=== PATIENT | female | born 1960 | race Caucasian/White ===

== ENCOUNTER → 2018-11-26 18:39 | Outpatient (CLI) | payer MEDICAID, SELFPAY | PROVIDERS: Visit Provider Emergency Medicine | DX: R10.9 Unspecified abdominal pain (principal) | CPT/HCPCS: 87086 ==

== ENCOUNTER 2019-03-26 11:39 | Observation (INO) ==
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
[2019-03-26 12:06] LABS: Microscopic, Urine URINE MICROSCOPIC (MICROSCOPIC)
[2019-03-26 12:11] LABS: Appearance,Urine CLEAR (Clear); Bilirubin,Urine Negative (Negative); Blood, Urine Negative (Negative); Color,Urine YELLOW (Yellow); Glucose,Urine (UA) Negative (Negative); Ketones,Urine Negative (Negative); Leukocyte Esterase,Urine Negative (Negative); PH,Urine 8.5 (5.0-8.5); Protein,Urine Negative (Negative)
[2019-03-26 12:17] LABS: Amphetamine/Metha Screen,Urine Negative ng/mL (<1000); Barbiturates Screen,Urine Negative ng/mL (<200); Benzodiazepines Screen,Urine Negative ng/mL (<200); Cannabinoid Screen,Urine Negative ng/mL (<50); Cocaine Screen,Urine Negative ng/mL (<300); Methadone Screen,Urine Negative ng/mL (<300); Opiate Screen,Urine Negative ng/mL (<300); Phencyclidine Screen,Urine Negative ng/mL (<25)
[2019-03-26 12:29] LABS: Basophils % 0.4 % (0.1-2.0); Eosinophils # 0.1 K/mm3 (0.0-0.4); Eosinophils % 1.1 % (0.1-12.0); Hematocrit 54.2 % (37.0-47.0); Hemoglobin 17.1 g/dL (12.2-16.2); Lymphocytes # 1.7 K/mm3 (0.7-4.5); Lymphocytes % 24.2 % (10-50); Mean Corpuscular HGB Conc 31.5 g/dL (31.8-35.4); Mean Corpuscular Volume 88.5 fl (81-99); Mean Platelet Volume 7.6 fl (7.4-10.4); Monocytes # 0.5 K/mm3 (0.1-1.0); Monocytes % 6.8 % (1.7-9.3); Neutrophils # 4.8 K/mm3 (1.8-7.8); Neutrophils % 67.4 % (37.0-80.0); Platelet Count 179 K/mm3 (142-424); Red Blood Count 6.12 M/mm3 (4.20-5.40); Red Cell Distribution Width 14.8 % (11.5-17.5); White Blood Count 7.1 K/mm3 (4.8-10.8)
[2019-03-26 12:29] LABS: Bacteria,Urine Trace /lpf; Squamous Epithelial Cell,Urine Occasional #/hpf (0-5); WBC,Urine Occasional #/hpf (0-3)
[2019-03-26 12:45] LABS: Alanine Aminotransferase 18 U/L (12-78); Albumin Level 3.5 gm/dL (3.4-5.0); Albumin/Globulin Ratio 0.9 (1.1-1.8); Alkaline Phosphatase 92 U/L (46-116); Anion Gap 13.9 mEq/L (5-15); Aspartate Amino Transferase 9 U/L (15-37); Bilirubin,Total 0.7 mg/dL (0.2-1.0); Blood Urea Nitrogen 11 mg/dL (7-18); Calcium 9.1 mg/dL (8.5-10.1); Carbon Dioxide 29 mmol/L (21.0-32.0); Chloride 103 mmol/L (98-107); Globulin 4.1 gm/dl (1.3-3.2); Glucose 122 mg/dL (74-106); Sodium 142 mmol/L (136-145); Total Protein,Serum 7.6 gm/dL (6.4-8.2)
--- NOTE | 2019-03-26 15:44 | History & Physical Report ---
*Admission Date: 03/26/19 *Chief complaint: Headache/chest pain/shortness of air *History of present illness: 58-year-old white female with multiple medical problems, including chronic pain disorder-managed by pain management/physical medicine and rehabilitation at [facility] and on a host of opiate pain medications-who also suffers from coronary disease, status post stent placement in 2013 with no cardiology follow-up in the past 2 years, as well as hypertension and fibromyalgia issues who has not seen her primary physician for over 4 months. She ran out of her blood pressure medication 2 days ago. Last night she began to have increasing headaches and shortness of air, felt like her head had a frontal headache that was extremely uncomfortable and pounding and felt a chest fullness. She came to the emergency department this morning, labs were nondiagnostic but because of her elevated blood pressure and risk factors she was admitted to observation for further diagnostic testing and serial enzymes. [facility] History I have reviewed the patient's past medical history: Yes Medical History: Reports:: Congestive Heart Failure, Hyperlipidemia, Hypertension, Myocardial Infarction, Palpitations Denies:: Cancer, Diabetes Mellitus Type 1, Diabetes Mellitus Type 2, MRSA *Have you ever received a pneumonia vaccine?: No *Have you received a flu vaccine this season?: No Other Medical History: Reports: Hypothyroidism, Sinus Problems, Thyroid Disease Laterality Cases: Bilateral: Myringotomy (Ear Tubes), Tonsillectomy Other Surgeries: Yes: Cardiac Catheterization, Cholecystectomy Amputation: No Fractures: No - *Social History Educational Level: Attended College Smoking Status: Current every day smoker Tobacco Type: cigarettes # Packs/Day (cigarettes): 2 Alcohol Intake: former Alcohol Intake Frequency:: other Substance Use Type: crack/cocaine, prescription drug *Occupational Status:: disabled Housing: house Household Members: none *Travel in the last 8 weeks: None Family Hx:: Cancer, Coronary Artery Disease, Diabetes, Heart Attack, Hyperlipidemia, Hypertension, Stroke, Thyroid Disorder Review of Systems - Review of Systems Patient has significant headache problems, reports that she has no double vision or blurry vision. Reports chest pain but no diaphoresis, reports nausea. Reports chronic pains almost all over her body. This is an old finding for her. Reports no neurologic deficits of focal areas. Otherwise review of systems unremarkable except as noted in HPI. Meds Home Medications Medication Instructions Recorded Confirmed Type nitroglycerin 0.4 mg sublingual 0.4 mg SUBLINGUAL Q5-15M PRN #25 05/12/1803/14 Rx tablet tab fentanyl 100 mcg/hr transdermal 1 patch TRANSDERMA Q72H 11/26/18 03/26/19 History patch gabapentin 800 mg tablet 800 mg PO QID tab 11/26/18 03/26/19 History tramadol 50 mg tablet 100 mg PO Q6H PRN tab 11/26/18 03/26/19 History Amlodipine Besylate [Amlodipine 10 mg PO DAILY 03/26/19 03/26/19 History 10mg Tab] Aspirin [Low Dose Aspirin EC] 81 mg PO DAILY 03/26/19 03/26/19 History Atorvastatin Calcium [Lipitor 80mg 80 mg PO HS 03/26/19 03/26/19 History Tablet] Carvedilol [Carvedilol 25mg Tab] 25 mg .ROUTE BID 03/26/19 03/26/19 History Clopidogrel Bisulfate [Plavix 75mg 75 mg PO DAILY 03/26/19 03/26/19 History Tab] Furosemide [Furosemide 40MG tAB] 40 mg PO DAILY 03/26/19 03/26/19 History Isosorbide Mononitrate [Imdur 60mg 60 mg PO DAILY 03/26/19 03/26/19 History ER tablet] Levothyroxine Sodium 125 mcg PO DAILY 03/26/19 03/26/19 History [Levothyroxine 125mcg (0.125mg) Tab] Loratadine [Allergy Relief] 10 mg PO DAILY 03/26/19 03/26/19 History Omeprazole [Omeprazole 20mg 20 mg PO DAILY 03/26/19 03/26/19 History Capsule] Oxycodone HCl [Oxycodone (IR) 10mg 1 - 2 tab PO Q6HP PRN 03/26/19 03/26/19 History Tab] Tizanidine HCl 4 mg PO TID 03/26/19 03/26/19 History Trazodone HCl 100 mg PO HS 03/26/19 03/26/19 History Allergies Allergy/AdvReac Type Severity Reaction Status Date / Time lisinopril [LISINOPRIL] Allergy Severe S-ANAPHYLAX Verified 03/26/19 12:23 IS erythromycin base AdvReac Verified 03/26/19 11:50 Exam Vital signs and Labs for Last 24 Hours: Temp Pulse Resp BP Pulse Ox 98.1 F 62 16 151/83 H 96 03/26/19 14:27 03/26/19 14:27 03/26/19 14:27 03/26/19 14:27 03/26/19 14:27 Laboratory Results - last 24 hr 03/26/19 11:51: Urine Opiates Screen Negative, Urine Methadone Screen Negative, Ur Barbituates Screen Negative, Ur Phencyclidine Scrn Negative, Ur Amphetamines Screen Negative, U Benzodiazepines Scrn Negative, Urine Cocaine Screen Negative, U Marijuana (THC) Screen Negative 03/26/19 12:00: Urine Color Yellow, Urine Appearance Clear, Urine pH 8.5, Ur Specific [place] 1.010, Urine Protein Negative, Urine Glucose (UA) Negative, Urine Ketones Negative, Urine Blood Negative, Urine Nitrate Negative, Urine Bilirubin Negative, Urine Urobilinogen 1.0, Ur Leukocyte Esterase Negative, Urine WBC Occasional, Ur Squamous Epith Cells Occasional, Urine Bacteria Trace 03/26/19 12:04: WBC 7.1, RBC 6.12 H, Hgb 17.1 H, Hct 54.2 H, MCV 88.5, MCH 27.9, MCHC 31.5 L, RDW 14.8, Plt Count 179, MPV 7.6, Neut % (Auto) 67.4, Lymph % (Auto) 24.2, [place] % (Auto) 6.8, Eos % (Auto) 1.1, Baso % (Auto) 0.4, Neut # (Auto) 4.8, Lymph # (Auto) 1.7, [place] # (Auto) 0.5, Eos # (Auto) 0.1, Baso # (Aut o) 0.0 03/26/19 12:04: D-Dimer < 100 03/26/19 12:04: Sodium 142, Potassium 3.9, Chloride 103, Carbon Dioxide 29, Anion Gap 13.9, BUN 11, Creatinine 0.61, Estimated Creat Clear 168, Estimated GFR 101, Est GFR ( Amer) 122, Glucose 122 H, Calcium 9.1, Total Bilirubin 0.7, AST 9 L, ALT 18, Alkaline Phosphatase 92, Troponin I < 0.02, Total Protein 7.6, Albumin 3.5, Globulin 4.1 H, Albumin/Globulin Ratio 0.9 L 03/26/19 12:04: B-Natriuretic Peptide 172 H I & O for Last 24 hours: Intake & Output 03/24/19 03/25/19 03/26/19 03/27/19 11:59 11:59 11:59 11:59 Weight 230 lb 272 lb 2 oz Narrative: Patient is alert, oriented x3. Morbid obesity noted, limits accuracy of exam. Lungs are clear in the anterior and posterior jimenez, heart rate regular without murmurs. Abdomen is soft, very limited exam. Distal extremities warm and well-perfused, normal pulses. Cranial nerves intact, peripheral strength and reflexes are also intact. Assessment and Plan (1) Personal history of nicotine dependence Current visit: Yes Status: Acute Category: Medical Code(s): Z87.891 - Personal history of nicotine dependence Nicotine patch ordered (2) Accelerated hypertension Current visit: Yes Status: Acute Category: Medical Code(s): I10 - Essential (primary) hypertension Restart home medication. I think this will solve most of her headache and chest pain problems. (3) CAD (coronary artery disease) Current visit: Yes Status: Acute Category: Medical Code(s): I25.10 - Atherosclerotic heart disease of [place] coronary artery without angina pectoris On good medications with beta-jeri, aspirin and Plavix. On high-dose statin. Not on KORY inhibitor because of allergy. We will schedule cardiology follow- up on discharge. (4) Headache Current visit: Yes Status: Acute Category: Medical Code(s): R51 - Headache Lowering blood pressure will help. (5) Non-compliance Current visit: Yes Status: Acute Category: Medical Code(s): Z91.19 - Patient's noncompliance with other medical treatment and regimen (6) Obesity Current visit: Yes Status: Acute Qualifiers: Obesity classification: adult class 3 (BMI >= 40) Body mass index: BMI 40.0-44.9 Category: Medical Code(s): E66.9 - Obesity, unspecified Complicates all aspects of her care
[2019-03-27 07:47] LABS: Basophils % 0.2 % (0.1-2.0); Eosinophils # 0.1 K/mm3 (0.0-0.4); Eosinophils % 1.1 % (0.1-12.0); Hematocrit 50.6 % (37.0-47.0); Hemoglobin 15.5 g/dL (12.2-16.2); Lymphocytes # 2.2 K/mm3 (0.7-4.5); Lymphocytes % 29.3 % (10-50); Mean Corpuscular HGB Conc 30.6 g/dL (31.8-35.4); Mean Platelet Volume 8.1 fl (7.4-10.4); Monocytes # 0.5 K/mm3 (0.1-1.0); Monocytes % 7.2 % (1.7-9.3); Neutrophils # 4.7 K/mm3 (1.8-7.8); Neutrophils % 62.2 % (37.0-80.0); Platelet Count 156 K/mm3 (142-424); Red Blood Count 5.56 M/mm3 (4.20-5.40); Red Cell Distribution Width 14.9 % (11.5-17.5); White Blood Count 7.5 K/mm3 (4.8-10.8)
[2019-03-27 07:59] LABS: Calcium 8.9 mg/dL (8.5-10.1)
--- NOTE | 2019-03-27 08:24 | Discharge Summary ---
General - General Admission date:: 03/26/19 Discharge date: 03/27/19 HPI HPI: 58-year-old white female with multiple medical problems, including chronic pain disorder-managed by pain management/physical medicine and rehabilitation at [facility] and on a host of opiate pain medications-who also suffers from coronary disease, status post stent placement in 2013 with no cardiology follow-up in the past 2 years, as well as hypertension and fibromyalgia issues who has not seen her primary physician for over 4 months. She ran out of her blood pressure medication 2 days ago. Last night she began to have increasing headaches and shortness of air, felt like her head had a frontal headache that was extremely uncomfortable and pounding and felt a chest fullness. She came to the emergency department this morning, labs were nondiagnostic but because of her elevated blood pressure and risk factors she was admitted to observation for further diagnostic testing and serial enzymes. Hospital Course Hospital Course: Patient was admitted to the hospital and her regular medications were restarted. She told me this morning that she has not run out of most of her blood pressure medication but just simply stopped them because "sometimes I get tired of taking medicines." Interestingly she maintains that she has been compliant with her fentanyl and oxycodone therapy and tramadol therapy even though her opiate screen was negative on urine testing on admission. She does not know why this would be the case. Hospital course was smooth. She was admitted, telemetry monitoring showed normal sinus rhythm. She had 3 sets of negative troponins and her blood pressure responded very nicely to the resumption of her normal medication regimen. She had a headache that resolved after nitroglycerin patch was removed. She tolerated a NicoDerm patch fairly well. This morning other than feeling "tired and not great," she had no complaints. She was alert and oriented. Please see discharge physical exam. She will be discharged home to resume her regular medications. I will prescribe a NicoDerm patch for her. She will follow-up with her pain management physician at -they will need to address the absence of controlled substances in her urine specimen in the face of multiple opiate prescriptions. I have advised her that she needs to resume regular follow-up with cardiology and her primary care office. Objective Vital signs: Temp Pulse Resp BP Pulse Ox 98.8 F 57 L 17 124/47 L 97 03/27/19 08:00 03/27/19 08:00 03/27/19 08:00 03/27/19 08:00 03/27/19 08:00 Narrative: Patient is awake, oriented x3. Dysthymic affect. Heart rate regular. No murmurs. Good distal tissue perfusion. Lungs are clear bilaterally. Abdomen is obese but soft. No JVD. Oropharynx clear. Cranial nerves intact. Results Labs on day of discharge: Labs from last 24 hours 03/27/19 03/27/19 03/26/19 07:05 07:05 20:06 WBC 7.5 RBC 5.56 H Hgb 15.5 Hct 50.6 H MCV 91.0 MCH 27.9 MCHC 30.6 L RDW 14.9 Plt Count 156 MPV 8.1 Neut % (Auto) 62.2 Lymph % (Auto) 29.3 [place] % (Auto) 7.2 Eos % (Auto) 1.1 Baso % (Auto) 0.2 Neut # (Auto) 4.7 Lymph # (Auto) 2.2 [place] # (Auto) 0.5 Eos # (Auto) 0.1 Baso # (Auto) 0.0 D-Dimer Sodium 140 Potassium 4.0 Chloride 102 Carbon Dioxide 34 H Anion Gap 8.0 BUN 11 Creatinine 0.67 Estimated Creat Clear 90 Estimated GFR 91 Est GFR ( Amer) 110 Glucose 102 Calcium 8.9 Total Bilirubin AST ALT Alkaline Phosphatase Troponin I < 0.02 B-Natriuretic Peptide Total Protein Albumin Globulin Albumin/Globulin Ratio Urine Color Urine Appearance Urine pH Ur Specific [place] Urine Protein Urine Glucose (UA) Urine Ketones Urine Blood Urine Nitrate Urine Bilirubin Urine Urobilinogen Ur Leukocyte Esterase Urine WBC Ur Squamous Epith Cells Urine Bacteria Urine Opiates Screen Urine Methadone Screen Ur Barbituates Screen Ur Phencyclidine Scrn Ur Amphetamines Screen U Benzodiazepines Scrn Urine Cocaine Screen U Marijuana (THC) Screen 03/26/19 03/26/19 03/26/19 17:10 12:04 12:04 WBC RBC Hgb Hct MCV MCH MCHC RDW Plt Count MPV Neut % (Auto) Lymph % (Auto) [place] % (Auto) Eos % (Auto) Baso % (Auto) Neut # (Auto) Lymph # (Auto) [place] # (Auto) Eos # (Auto) Baso # (Auto) D-Dimer Sodium 142 Potassium 3.9 Chloride 103 Carbon Dioxide 29 Anion Gap 13.9 BUN 11 Creatinine 0.61 Estimated Creat Clear 168 Estimated GFR 101 Est GFR ( Amer) 122 Glucose 122 H Calcium 9.1 Total Bilirubin 0.7 AST 9 L ALT 18 Alkaline Phosphatase 92 Troponin I 0.02 < 0.02 B-Natriuretic Peptide 172 H Total Protein 7.6 Albumin 3.5 Globulin 4.1 H Albumin/Globulin Ratio 0.9 L Urine Color Urine Appearance Urine pH Ur Specific [place] Urine Protein Urine Glucose (UA) Urine Ketones Urine Blood Urine Nitrate Urine Bilirubin Urine Urobilinogen Ur Leukocyte Esterase Urine WBC Ur Squamous Epith Cells Urine Bacteria Urine Opiates Screen Urine Methadone Screen Ur Barbituates Screen Ur Phencyclidine Scrn Ur Amphetamines Screen U Benzodiazepines Scrn Urine Cocaine Screen U Marijuana (THC) Screen 03/26/19 03/26/19 03/26/19 12:04 12:04 12:00 WBC 7.1 RBC 6.12 H Hgb 17.1 H Hct 54.2 H MCV 88.5 MCH 27.9 MCHC 31.5 L RDW 14.8 Plt Count 179 MPV 7.6 Neut % (Auto) 67.4 Lymph % (Auto) 24.2 [place] % (Auto) 6.8 Eos % (Auto) 1.1 Baso % (Auto) 0.4 Neut # (Auto) 4.8 Lymph # (Auto) 1.7 [place] # (Auto) 0.5 Eos # (Auto) 0.1 Baso # (Auto) 0.0 D-Dimer < 100 Sodium Potassium Chloride Carbon Dioxide Anion Gap BUN Creatinine Estimated Creat Clear Estimated GFR Est GFR ( Amer) Glucose Calcium Total Bilirubin AST ALT Alkaline Phosphatase Troponin I B-Natriuretic Peptide Total Protein Albumin Globulin Albumin/Globulin Ratio Urine Color Yellow Urine Appearance Clear Urine pH 8.5 Ur Specific [place] 1.010 Urine Protein Negative Urine Glucose (UA) Negative Urine Ketones Negative Urine Blood Negative Urine Nitrate Negative Urine Bilirubin Negative Urine Urobilinogen 1.0 Ur Leukocyte Esterase Negative Urine WBC Occasional Ur Squamous Epith Cells Occasional Urine Bacteria Trace Urine Opiates Screen Urine Methadone Screen Ur Barbituates Screen Ur Phencyclidine Scrn Ur Amphetamines Screen U Benzodiazepines Scrn Urine Cocaine Screen U Marijuana (THC) Screen 03/26/19 11:51 WBC RBC Hgb Hct MCV MCH MCHC RDW Plt Count MPV Neut % (Auto) Lymph % (Auto) [place] % (Auto) Eos % (Auto) Baso % (Auto) Neut # (Auto) Lymph # (Auto) [place] # (Auto) Eos # (Auto) Baso # (Auto) D-Dimer Sodium Potassium Chloride Carbon Dioxide Anion Gap BUN Creatinine Estimated Creat Clear Estimated GFR Est GFR ( Amer) Glucose Calcium Total Bilirubin AST ALT Alkaline Phosphatase Troponin I B-Natriuretic Peptide Total Protein Albumin Globulin Albumin/Globulin Ratio Urine Color Urine Appearance Urine pH Ur Specific [place] Urine Protein Urine Glucose (UA) Urine Ketones Urine Blood Urine Nitrate Urine Bilirubin Urine Urobilinogen Ur Leukocyte Esterase Urine WBC Ur Squamous Epith Cells Urine Bacteria Urine Opiates Screen Negative Urine Methadone Screen Negative Ur Barbituates Screen Negative Ur Phencyclidine Scrn Negative Ur Amphetamines Screen Negative U Benzodiazepines Scrn Negative Urine Cocaine Screen Negative U Marijuana (THC) Screen Negative DS: Diagnosis - Discharge Diagnosis (1) Personal history of nicotine dependence Status: Chronic (2) Accelerated hypertension Status: Resolved (3) CAD (coronary artery disease) Status: Chronic (4) Headache Status: Resolved (5) Non-compliance Status: Chronic (6) Obesity Status: Chronic Discharge Plan - Patient Discharge Instructions ACTIVITY: Continue current activity DIET: continue same diet - Follow up Plan Follow up with: Marcel Bui MD [Staff Physician] - 2 weeks Noel Rogers MD [Staff Physician] - 1 week Disposition: Home, Self-[facility] Medications: Home Medications Medication Instructions Recorded Confirmed Type nitroglycerin 0.4 mg sublingual 0.4 mg SUBLINGUAL Q5-15M PRN #25 05/12/18 03/26/19 Rx tablet tab fentanyl 100 mcg/hr transdermal 1 patch TRANSDERMA Q72H 11/26/18 03/26/19 History patch gabapentin 800 mg tablet 800 mg PO QID tab 11/26/18 03/26/19 History tramadol 50 mg tablet 100 mg PO Q6H PRN tab 11/26/18 03/26/19 History Aspirin [Low Dose Aspirin EC] 81 mg PO DAILY 03/26/19 03/26/19 History Atorvastatin Calcium [Lipitor 80mg 80 mg PO HS 03/26/19 03/26/19 History Tablet] Clopidogrel Bisulfate [Plavix 75mg 75 mg PO DAILY 03/26/19 03/26/19 History Tab] Furosemide [Furosemide 40MG tAB] 40 mg PO DAILY 03/26/19 03/26/19 History Levothyroxine Sodium 125 mcg PO DAILY 03/26/19 03/26/19 History [Levothyroxine 125mcg (0.125mg) Tab] Loratadine [Allergy Relief] 10 mg PO DAILY 03/26/19 03/26/19 History Omeprazole [Omeprazole 20mg 20 mg PO DAILY 03/26/19 03/26/19 History Capsule] Oxycodone HCl [Oxycodone (IR) 10mg 1 - 2 tab PO Q6HP PRN 03/26/19 03/26/19 History Tab] Tizanidine HCl 4 mg PO TID 03/26/19 03/26/19 History Trazodone HCl 100 mg PO HS 03/26/19 03/26/19 History Amlodipine Besylate [Amlodipine 10 mg PO DAILY #30 tab 03/27/19 Rx 10mg Tab] Carvedilol [Carvedilol 25mg Tab] 25 mg .ROUTE BID #60 tab 03/27/19 Rx Isosorbide Mononitrate [Imdur 60mg 60 mg PO DAILY #30 tab.er.24h 03/27/19 Rx ER tablet] Nicotine [Nicotine Patch 21 mg TD DAILY #30 patch 03/27/19 Rx 21mg/24hrs] Prescriptions/Medication Reconciliation: New Nicotine [Nicotine Patch 21mg/24hrs] 21 mg TD DAILY #30 patch Continued nitroglycerin 0.4 mg sublingual tablet 0.4 mg SUBLINGUAL Q5-15M PRN #25 tab PRN Reason: chest pain fentanyl 100 mcg/hr transdermal patch 1 patch TRANSDERMA Q72H tramadol 50 mg tablet 100 mg PO Q6H PRN tab PRN Reason: PAIN gabapentin 800 mg tablet 800 mg PO QID tab Loratadine [Allergy Relief] 10 mg PO DAILY Omeprazole [Omeprazole 20mg Capsule] 20 mg PO DAILY Levothyroxine Sodium [Levothyroxine 125mcg (0.125mg) Tab] 125 mcg PO DAILY Atorvastatin Calcium [Lipitor 80mg Tablet] 80 mg PO HS Aspirin [Low Dose Aspirin EC] 81 mg PO DAILY Clopidogrel Bisulfate [Plavix 75mg Tab] 75 mg PO DAILY Trazodone HCl 100 mg PO HS Oxycodone HCl [Oxycodone (IR) 10mg Tab] 1 - 2 tab PO Q6HP PRN PRN Reason: pain Carvedilol [Carvedilol 25mg Tab] 25 mg .ROUTE BID #60 tab Isosorbide Mononitrate [Imdur 60mg ER tablet] 60 mg PO DAILY #30 tab.er.24h Furosemide [Furosemide 40MG tAB] 40 mg PO DAILY Tizanidine HCl 4 mg PO TID Amlodipine Besylate [Amlodipine 10mg Tab] 10 mg PO DAILY #30 tab
== END 2019-03-27 14:11 | disposition home or self-care (01) ==
LOC: ER 11:39 → 2ND 11:39
PROVIDERS: ADMIT Internal Medicine Adolescent Medicine; ATTEND Internal Medicine Adolescent Medicine
DX: I25.10 Atherosclerotic heart disease of native coronary artery without angina pectoris; E66.9 Obesity, unspecified; Z79.82 Long term (current) use of aspirin; I25.2 Old myocardial infarction; Z83.3 Family history of diabetes mellitus; I50.9 Heart failure, unspecified; Z82.49 Family history of ischemic heart disease and other diseases of the circulatory system; Z88.8 Allergy status to other drugs, medicaments and biological substances; Z91.14 Patient's other noncompliance with medication regimen; Z79.890 Hormone replacement therapy; Z95.5 Presence of coronary angioplasty implant and graft; I11.0 Hypertensive heart disease with heart failure; F14.10 Cocaine abuse, uncomplicated; R07.9 Chest pain, unspecified; Z79.899 Other long term (current) drug therapy; F17.210 Nicotine dependence, cigarettes, uncomplicated; Z79.02 Long term (current) use of antithrombotics/antiplatelets; E78.5 Hyperlipidemia, unspecified; Z68.41 Body mass index [BMI] 40.0-44.9, adult; M79.7 Fibromyalgia; Z83.438 Family history of other disorder of lipoprotein metabolism and other lipidemia; Z83.49 Family history of other endocrine, nutritional and metabolic diseases; Z82.3 Family history of stroke; G89.4 Chronic pain syndrome; Z79.891 Long term (current) use of opiate analgesic; M54.9 Dorsalgia, unspecified; Z80.9 Family history of malignant neoplasm, unspecified; Z90.49 Acquired absence of other specified parts of digestive tract
CPT/HCPCS: 36415; 70450; 71010; 71045; 80048; 80053; 80305; 81001; 83880; 84484; 85025; 85378; 93005; 96374; 99284; G0378; J2405

== ENCOUNTER 2021-04-12 13:00 | Outpatient (RCR) | payer MEDICAID, SELFPAY | END 2021-04-12 13:05 | disposition home or self-care (01) | LOC: PT 13:00 | PROVIDERS: PCP Emergency Medicine | DX: M48.062 Spinal stenosis, lumbar region with neurogenic claudication (principal) | CPT/HCPCS: 97010; 97014; 97113; 97163; G0283 ==